=== PATIENT | male | born 1960 | race Caucasian/White ===

== ENCOUNTER → 2023-12-24 10:04 | Outpatient (CLI) | payer OTHER, SELFPAY ==
--- NOTE | 2023-12-24 | DI.ECHO.S_ITS ---
[place] [facility] : : [address] : : [place] : : [id number] : : Phone: [phone] Echocardiogram Report + + :Name: SMOOTH ARORA Study Date: 12/24/2023 Height: 71 in : :[facility] ReadingLocation: Weight: 236 lb : : Gender: Male BSA: 2.3 m2 : :: 1960 Age: 63 yrs BP: 144/87 mmHg: :Reason For Study: ATRIAL FIBRILLATION SECONDARY TO : :HYPERTENSION : :Ordering Physician: TANA, : :IZZY Performed By: Ti Delvalle : :Referring: IZZY FAJARDO : + + Interpretation Summary Borderline concentric left ventricular hypertrophy with ejection fraction 60- 65%. Mild biatrial enlargement. No significant valvular abnormality. Procedure: A two-dimensional transthoracic echocardiogram with color flow and Doppler was performed. The study quality was technically adequate. There is no prior echocardiogram noted for this patient. The patient was in sinus bradycardia with heart rates between 50-53 bpm during the exam. Left Ventricle: The left ventricle is normal in size. There is borderline concentric left ventricular hypertrophy. The ejection fraction is estimated to be 60-65%. There are no focal wall motion abnormalities. Diastolic parameters suggest probable normal left ventricular diastolic function and normal filling pressures. Right Ventricle: The right ventricle is normal in size and function. Atria: There is mild biatrial enlargement. The interatrial septum grossly appears intact with no obvious evidence for an atrial septal defect. Mitral Valve: The mitral valve leaflets appear mildly thickened, but open well. The mitral valve leaflets appear to open well. There is no mitral valve stenosis. There is trace mitral regurgitation. Aortic Valve: The aortic valve is trileaflet. There is mild aortic valve sclerosis. The aortic valve opens well. There is no aortic valve stenosis. No aortic regurgitation is present. Tricuspid Valve: The tricuspid valve is normal. There is no tricuspid stenosis. There is trace tricuspid regurgitation. The right ventricular systolic pressure is estimated to be at least 27.8 mmHg based on an estimated right atrial pressure of 8 mm Hg. Pulmonic Valve: The pulmonic valve is not well visualized. The pulmonic valve is not well seen, but is grossly normal. There is no pulmonic valvular stenosis. There is no pulmonic valvular regurgitation. Great Vessels: The aortic root is mildly dilated. The dimensions of the ascending aorta are normal. The IVC is dilated (diameter is greater than 2.1 cm) yet it collapses greater than 50% with a sniff. This suggests a right atrial pressure of 8 mm Hg. Pericardium/ Pleura There is no pericardial effusion. There is no pleural effusion. MMode/2D Measurements & Calculations LVIDd: 5.1 cm LVOT diam: 2.4 cm LVIDs: 3.3 cm Ao root diam: 4.0 cm FS: 35.1 % asc Aorta Diam: 3.6 cm IVSd: 1.2 cm LVPWd: 1.00 cm LV parrish. diameter/BSA (cm/m^2): 2.2 LV sys. diameter/BSA (cm/m^2): 1.4 LA A2 area: 25.3 cm2 RA long axis: 5.3 cm LA A4 area: 21.8 cm2 RA area: 21.0 cm2 LA length (vol): 5.6 cm RA vol: 71.0 ml LA vol: 83.4 ml RA : 31.4 ml/m2 LA vol index: 36.8 ml/m2 IVC diam: 2.3 cm RVD1 (basal): 3.9 cm RVD2 (mid): 2.7 cm TAPSE: 2.6 cm Doppler Measurements & Calculations Ao V2 max: 102.2 cm/sec LVOT Max Mikey: 86.6 cm/sec Ao V2 mean: 73.2 cm/sec LV V1 max P.0 mmHg Ao max P.2 mmHg LV V1 VTI: 23.9 cm Ao mean P.3 mmHg BJORN(I,D): 4.1 cm2 Ao V2 VTI: 26.7 cm BJORN(V,D): 3.9 cm2 sev ratio: 0.89 BJORN indexed to BSA (cm^2/m^2): 1.8 MV E max mikey: 77.9 cm/sec TR max mikey: 222.7 cm/sec MV A max mikey: 70.2 cm/sec TR max P.8 mmHg MV E/A: 1.1 PA V2 max: 99.3 cm/sec Med Peak E' Mikey: 7.5 cm/sec PA V2 mean: 67.5 cm/sec E/E' med: 10.5 PA mean P.0 mmHg Lat Peak E' Mikey: 9.0 cm/sec PA pr(Accel): 19.1 mmHg E/E' lat: 8.6 E/e' average: 9.5 MV dec time: 0.18 sec SV(LVOT): 109.7 ml Electronically signed by: Michelet Metcalf on Reading Physician:12/24/2023 12:09 PM
== END ==
LOC: ECHO 10:05
PROVIDERS: Referring Provider Orthopaedic Surgery; Visit Provider Orthopaedic Surgery
DX: Z00.00 Encounter for general adult medical examination without abnormal findings (principal); I35.8 Other nonrheumatic aortic valve disorders; I77.810 Thoracic aortic ectasia
CPT/HCPCS: 93306